=== PATIENT | male | born 1980 | race Caucasian/White ===

== ENCOUNTER 2018-10-12 18:54 | Inpatient (IN) ==
[2018-10-12] MEDS ORDERED: ASPIRIN 325 MG TABLET PO STA (19:20)
[2018-10-12] MEDS ORDERED: ONDANSETRON 4 MG/2 ML VIAL IV STA (19:20)
[2018-10-12] MEDS ORDERED: NITROGLYCERIN 2% OINT 1 INCH/GM PACK TOP STA (19:20)
[2018-10-12] MEDS ORDERED: MORPHINE 4 MG/1 ML VIAL IV STA ×2 (19:20→20:15)
[2018-10-12 19:33] LABS: Basophils % 0.4 % (0.0-0.8); Eosinophils # 0.2 10*3/uL (0.0-0.87); Eosinophils % 1.7 % (0.00-10.9); Hematocrit 49.5 VOL% (42.0-52.0); Hemoglobin 16.3 GM/DL (14.0-18.0); Immature Granulocytes % 0.3 %; Immature Granulocytes Absolute 0.03 #; Lymphocytes # 2.9 10*3/uL (1.4-4.0); Lymphocytes % 29.6 % (21.2-54.2); Mean Corpuscular HGB Conc 32.9 GM/DL (32-36); Mean Corpuscular Hemoglobin 29 PG (27-34); Mean Corpuscular Volume 88.1 FL (87-102); Mean Platelet Volume 11.2 FL (9.6-12.0); Neutrophils # 5.7 10*3/uL (1.4-7.4); Platelet Count 272 T/CUMM (130-400); Red Blood Count 5.62 MC/CUMM (3.8-5.5); Red Cell Distribution Width 12.4 % (9.3-17.3); White Blood Count 9.9 T/CUMM (4-12)
[2018-10-12 19:44] LABS: PT Patient Result 10.9 SECS
[2018-10-12 19:57] LABS: Apearance,Urine CLEAR (Clear); Bacteria,Urine Occasional /HPF (Few); Bilirubin,Urine Negative (Negative); Blood, Urine Negative (Negative); Glucose,Urine (UA) >=500 mg/dL (Negative); Ketones,Urine 5 mg/dL (Negative); Nitrite,Urine Negative (Negative); Protein,Urine Negative; RBC,Urine 1 /HPF (0-4); Squamous Epithelial Cell,Urine Occasional /HPF (0-10); Urine Color Straw (Yellow); Urine Specific Gravity 1.021 (1.001-1.035); Urine Urobilinogen < 2.0 EU/DL (0.2-1.0)
[2018-10-12 20:03] LABS: Albumin 3.7 G/DL (3.4-5.0); CKMB % 7.5 %; Calcium 8.8 MG/DL (8.5-10.1); Free T4 (Free Thyroxine) 1.22 NG/DL (0.76-1.46); Osmolality,Calculated 280.8 MOS/KG (273-304); Potassium 3.7 MMOL/L (3.5-5.1); Thyroid Stimulating Hormone 0.021 uIU/ml (0.358-3.74); Total Protein 7.8 G/DL (6.4-8.3)
[2018-10-12 20:04] LABS: Troponin I 0.887 NG/ML (0.00-0.045)
[2018-10-12] MEDS ORDERED: ENOXAPARIN 100 MG/ML SYRINGE SUBCUT STA (20:06)
[2018-10-12] MEDS ORDERED: METOPROLOL TARTRATE 25 MG TABLET ONE (20:11)
[2018-10-12] MEDS ORDERED: METOPROLOL TARTRATE 25 MG TABLET PO STA (20:15)
[2018-10-12] MEDS ORDERED: TIROFIBAN 0 MCG in PREMIX 1 EACH IV ONE (20:22)
[2018-10-12 20:30] LABS: Barbiturates Screen,Urine Negative (Negative); Benzodiazepines Screen,Urine Negative (Negative); Cannabinoid Screen,Urine Negative (Negative); Opiate Screen,Urine Negative (Negative); Phencyclidine Screen,Urine Negative (Negative)
[2018-10-12] MEDS ORDERED: TIROFIBAN 5,000 MCG/100 ML PREMIX IV SCH (20:30)
[2018-10-12] MEDS ORDERED: TIROFIBAN IV ONE (20:35)
[2018-10-12] MEDS ORDERED: MAGNESIUM SULF RIDER 2 GM in PREMIX 1 EACH IV PRN (21:22)
[2018-10-12] MEDS ORDERED: ONDANSETRON 4 MG/2 ML VIAL IV PRN (21:22)
[2018-10-12] MEDS ORDERED: SODIUM CHLORIDE 0.9% 1,000 ML IV SCH (21:22)
[2018-10-12] MEDS ORDERED: GLUCAGON 1 MG VIAL IM PRN (21:22)
[2018-10-12] MEDS ORDERED: MAGNESIUM SULF RIDER 4 GM in PREMIX 1 EACH IV PRN (21:22)
[2018-10-12] MEDS ORDERED: DEXTROSE 50% 25 GM/50 ML SYRINGE IV PRN (21:22)
[2018-10-12] MEDS ORDERED: POTASSIUM CHLORIDE 20 MEQ TABLET PO PRN (21:22)
[2018-10-12] MEDS: MORPHINE 4 MG/1 ML VIAL IV PRN (21:56)
[2018-10-12] MEDS: INSULIN GLARGINE 100 UNIT/ML SUBCUT SCH (23:53)
[2018-10-13] MEDS: INSULIN REGULAR 100 UNIT/ML SUBCUT SCH ×4 (00:23→18:15)
[2018-10-13 01:21] LABS: Basophils % 0.3 % (0.0-0.8); Eosinophils # 0.2 10*3/uL (0.0-0.87); Eosinophils % 2.3 % (0.00-10.9); Hematocrit 46.2 VOL% (42.0-52.0); Immature Granulocytes % 0.2 %; Immature Granulocytes Absolute 0.02 #; Lymphocytes # 2.9 10*3/uL (1.4-4.0); Mean Corpuscular HGB Conc 32.5 GM/DL (32-36); Mean Corpuscular Hemoglobin 29 PG (27-34); Monocytes % 11.2 % (1.7-12.7); Neutrophils # 4.9 10*3/uL (1.4-7.4); Platelet Count 267 T/CUMM (130-400); Red Blood Count 5.19 MC/CUMM (3.8-5.5); Red Cell Distribution Width 12.3 % (9.3-17.3); White Blood Count 9.1 T/CUMM (4-12)
[2018-10-13 01:44] LABS: Albumin 3.2 G/DL (3.4-5.0); Bilirubin,Total 1.1 MG/DL (0.2-1.0); Calcium 8.3 MG/DL (8.5-10.1); Osmolality,Calculated 280.4 MOS/KG (273-304); Potassium 3.6 MMOL/L (3.5-5.1); Risk Ratio 3.82; Thyroid Stimulating Hormone 0.039 uIU/ml (0.358-3.74); Total Protein 6.8 G/DL (6.4-8.3); VLDL CHOLESTEROL 25.4 MG/DL
[2018-10-13] MEDS: NITROGLYCERIN 2% OINT 1 INCH/GM PACK TOP SCH ×3 (03:08→13:02)
[2018-10-13] MEDS: MORPHINE 4 MG/1 ML VIAL IV PRN (03:30)
[2018-10-13] MEDS ORDERED: THYROID 60 MG TABLET PO SCH (06:30)
[2018-10-13] MEDS ORDERED: POTASSIUM CHLORIDE RIDER 10 MEQ in PREMIX 1 EACH IV PRN (07:31)
[2018-10-13] MEDS ORDERED: diphenhydrAMINE CAP 25 MG CAPSULE PO ONE (07:31)
[2018-10-13] MEDS ORDERED: DIAZEPAM 5 MG TABLET PO ONE (07:31)
[2018-10-13] MEDS ORDERED: MAGNESIUM SULF RIDER 2 GM in PREMIX 1 EACH IV PRN (07:31)
[2018-10-13] MEDS ORDERED: methylPREDNISolone SOD SUC 125 MG/2 ML VIAL IV ONE (07:32)
[2018-10-13] MEDS ORDERED: FAMOTIDINE 20 MG TABLET PO ONE (07:32)
[2018-10-13] MEDS ORDERED: ENOXAPARIN 100 MG/ML SYRINGE SUBCUT SCH (08:00)
[2018-10-13] MEDS ORDERED: NITROGLYCERIN DRIP 50 MG/250 ML BOTTLE IV ONE (08:13)
[2018-10-13] MEDS ORDERED: LIDOCAINE 1% 20 ML VIAL ONE (08:13)
[2018-10-13] MEDS ORDERED: fentaNYL 100 MCG/2 ML VIAL ONE (08:13)
[2018-10-13] MEDS ORDERED: MIDAZOLAM 2 MG/2 ML VIAL ONE (08:13)
[2018-10-13] MEDS ORDERED: VERAPAMIL 5 MG/2 ML VIAL ONE (08:13)
[2018-10-13] MEDS ORDERED: TIROFIBAN 5,000 MCG/100 ML PREMIX IV ONE (08:41)
[2018-10-13] MEDS ORDERED: PROMETHAZINE 25 MG/1 ML VIAL ONE (08:59)
[2018-10-13] MEDS ORDERED: ASPIRIN EC 325 MG TABLET PO SCH (09:00)
[2018-10-13] MEDS ORDERED: NON-FORMULARY MEDICATION (Empagliflozin [Jardiance] 25 MG) PO SCH (09:00)
[2018-10-13] MEDS ORDERED: NON-FORMULARY MEDICATION (Potassium [Potassium] 99 MG) PO SCH (09:00)
[2018-10-13] MEDS ORDERED: ATORVASTATIN 20 MG TABLET PO SCH (09:00)
[2018-10-13] MEDS ORDERED: TICAGRELOR 90 MG TABLET ONE (09:02)
[2018-10-13] MEDS ORDERED: DEXTROSE 50% 25 GM/50 ML SYRINGE IV PRN (09:39)
[2018-10-13] MEDS ORDERED: ZALEPLON 5 MG CAPSULE PO PRN (09:39)
[2018-10-13] MEDS: TIROFIBAN 5,000 MCG/100 ML PREMIX IV SCH ×2 (09:42→16:32)
[2018-10-13] MEDS: ASPIRIN EC 81 MG TABLET PO SCH (10:32)
[2018-10-13] MEDS: hydroCHLOROthiazide 25 MG TABLET PO SCH (10:32)
[2018-10-13] MEDS: LOSARTAN 25 MG TABLET PO SCH (10:33)
[2018-10-13] MEDS: PANTOPRAZOLE 40 MG TABLET PO SCH (10:33)
[2018-10-13] MEDS ORDERED: SIMVASTATIN 40 MG TABLET PO SCH (21:00)
[2018-10-13] MEDS: INSULIN GLARGINE 100 UNIT/ML SUBCUT SCH (21:32)
[2018-10-13] MEDS: TICAGRELOR 90 MG TABLET PO SCH (21:36)
[2018-10-14] MEDS: INSULIN REGULAR 100 UNIT/ML SUBCUT SCH ×2 (01:21→07:39)
[2018-10-14] MEDS: NITROGLYCERIN 2% OINT 1 INCH/GM PACK TOP SCH ×2 (03:28→07:20)
[2018-10-14 05:28] LABS: CKMB % 8.5 %; Calcium 8.5 MG/DL (8.5-10.1); Osmolality,Calculated 279.8 MOS/KG (273-304); Potassium 3.4 MMOL/L (3.5-5.1)
[2018-10-14 05:37] LABS: Troponin I 11.6 NG/ML (0.00-0.045)
[2018-10-14 05:57] LABS: Basophils # 0.1 10*3/uL (0.0-0.2); Basophils % 0.4 % (0.0-0.8); Eosinophils # 0.1 10*3/uL (0.0-0.87); Hematocrit 49.5 VOL% (42.0-52.0); Hemoglobin 16.3 GM/DL (14.0-18.0); Immature Granulocytes % 0.5 %; Immature Granulocytes Absolute 0.07 #; Lymphocytes # 3.1 10*3/uL (1.4-4.0); Lymphocytes % 22.3 % (21.2-54.2); Mean Corpuscular HGB Conc 32.9 GM/DL (32-36); Mean Corpuscular Hemoglobin 29 PG (27-34); Mean Corpuscular Volume 87.8 FL (87-102); Mean Platelet Volume 11.7 FL (9.6-12.0); Monocytes # 1.6 10*3/uL (0.11-0.8); Monocytes % 11.2 % (1.7-12.7); Neutrophils % 64.6 % (38.7-73.9); Platelet Count 281 T/CUMM (130-400); Red Blood Count 5.64 MC/CUMM (3.8-5.5); Red Cell Distribution Width 12.6 % (9.3-17.3)
[2018-10-14 07:47] VITALS: BP 140/96
[2018-10-14] MEDS ORDERED: ACETAMINOPHEN 325 MG TABLET PO PRN (07:48)
[2018-10-14] MEDS: TICAGRELOR 90 MG TABLET PO SCH (08:45)
[2018-10-14] MEDS: hydroCHLOROthiazide 25 MG TABLET PO SCH (08:45)
[2018-10-14] MEDS: LOSARTAN 25 MG TABLET PO SCH (08:45)
[2018-10-14] MEDS: ASPIRIN EC 81 MG TABLET PO SCH (08:45)
[2018-10-14] MEDS: PANTOPRAZOLE 40 MG TABLET PO SCH (08:45)
[2018-10-14] MEDS ORDERED: METOPROLOL SUCCINATE XL 25 MG TABLET PO SCH (10:00)
[2018-10-14] MEDS ORDERED: NON-FORMULARY MEDICATION (Semaglutide [Ozempic] 1 MG) SUBCUT SCH (20:00)
[2018-10-15] MEDS ORDERED: LOSARTAN 25 MG TABLET PO SCH (09:00)
== END 2018-10-14 11:31 | disposition home or self-care (01) | DRG 247 ==
LOC: N.ED 18:54 → N.EDINP 20:37 → N.ICU 21:11 → N.TELEN 10-13 11:11
PROVIDERS: ADMIT Internal Medicine Cardiovascular Disease; ATTEND Internal Medicine Cardiovascular Disease
PROC: CLCCHCL (ICD-10-PCS; 2018-10-13 08:45)